=== PATIENT | female | born 1950 | race Caucasian/White ===

== ENCOUNTER 2024-04-22 13:34 | Emergency (ER) | payer MEDICARE, OTHER, SELFPAY ==
[2024-04-22 14:01] VITALS: BP 171/90
--- NOTE | 2024-04-22 14:03 | ED.GENMED ---
ED Provider Triage
<Glenn Paulson PA-C - Last Filed: 04/22/24 14:03>
-
Patient seen by provider in Triage?: Seen in Triage
Attestation: A medical screening examination has been initiated by a qualified medical provider. Based on the assessment performed at this time, it has been determined that an emergent medical condition may exist and the patient has been informed
that further medical evaluation and possible additional diagnostic testing may be needed.
HPI: Right hand injury pulling on her dog's leash. Sustained bruising and abrasions over the dorsum of the right hand. Continued pain today. X-ray of the right hand ordered. Patient otherwise stable.
GENERAL: Alert , in no apparent distress
EYE: No visual abnormalities.
NECK: Trachea midline
ENT: No visible abnormalities.
LUNGS: No acute respiratory distress
NEUROLOGICAL: Alert and oriented
SKIN: Skin intact. No visible changes.
MUSCULOSKELETAL: Moving extremities normally
PSYCH: Normal and appropriate interaction.
This is a medical evaluation conducted in person to initiate diagnostic evaluation and provide initial therapeutics. Please see further documentation by the treating clinician.
History of Present Illness
<Glenn Paulson PA-C - Last Filed: 04/22/24 14:03>
General
Chief Complaint: Musculo-Skeletal Complaint
Time Seen by Provider: 04/22/24 15:21
<Keke Trimble NP - Last Filed: 04/22/24 23:51>
General
Source: patient
Exam Limitations: none
Nursing documentation reviewed up to this point in time: agreed with
History of Present Illness
History of Present Illness:
74-year-old female presents with pain and swelling, bruising and laceration of the back of right hand which occurred last night when her dog pulled its leash and she struck the back of her right hand on a door. She is unsure of her last tetanus
immunization.
Past History
<Keke V. Day, ACID MAKER - Last Filed: 04/22/24 23:51>
Past History
ED Past Medical History: Hypercholesterolemia
Social History
Tobacco: Non-smoker
Alcohol: Occasional
Personal: Single
Review of Systems
<Keke Trimble, ACID MAKER - Last Filed: 04/22/24 23:51>
Review of Systems
Allergies reviewed?: Yes
All Other Systems: ROS reviewed and negative except as documented in HPI and ROS
Constitutional: Denies fever
Musculoskeletal: Reports other (pain back of right hand )
Skin: Reports other (cut back of right hand, bruising, pain, swelling)
Neurological: Denies weakness or numbness
Phy Exam
<Keke Trimble, ACID MAKER - Last Filed: 04/22/24 23:51>
Physical Exam
Physical Exam:
PHYSICAL EXAMINATION:
General: no apparent distress, not acutely ill
Neuro: alert and oriented.
Psychiatric: well kept. interactive and cooperative
Musculoskeletal: Moves with ease
Skin: Warm, pink.
Course
<Glenn Paulson PA-C - Last Filed: 04/22/24 14:03>
Orders/Labs/Results
Orders:
Orders
04/22/24 13:35
Hand, Right 3 View [CR Hand - Right Min 3 Views] Urgent
Comment:
Reason For Exam: bruising and swelling
04/22/24 15:27
Tetanus/Diphth/Acelpertussis [Adacel] 0.5 ml IM .ONCE ONE
04/22/24 15:33
Ackerman Wrist Right-Tx ONCE
Vital Signs
Initial and Last Documented VS:
Initial Vital Signs
Temp Pulse Resp BP Pulse Ox
99 F 67 20 171/90 99
04/22/24 14:01 04/22/24 14:01 04/22/24 14:01 04/22/24 14:01 04/22/24 14:01
Last Documented Vital Signs
Temp Pulse Resp BP Pulse Ox
99 F 70 20 170/88 99
04/22/24 14:01 04/22/24 15:38 04/22/24 15:38 04/22/24 15:38 04/22/24 15:38
<Keke Trimble, ACID MAKER - Last Filed: 04/22/24 23:51>
Orders/Labs/Results
Orders:
Orders
04/22/24 13:35
Hand, Right 3 View [CR Hand - Right Min 3 Views] Urgent
Comment:
Reason For Exam: bruising and swelling
04/22/24 15:27
Tetanus/Diphth/Acelpertussis [Adacel] 0.5 ml IM .ONCE ONE
04/22/24 15:33
Ackerman Wrist Right-Tx ONCE
Vital Signs
Initial and Last Documented VS:
Initial Vital Signs
Temp Pulse Resp BP Pulse Ox
99 F 67 20 171/90 99
04/22/24 14:01 04/22/24 14:01 04/22/24 14:01 04/22/24 14:01 04/22/24 14:01
Last Documented Vital Signs
Temp Pulse Resp BP Pulse Ox
99 F 70 20 170/88 99
04/22/24 14:01 04/22/24 15:38 04/22/24 15:38 04/22/24 15:38 04/22/24 15:38
Procedures
<Keke Trimble, ACID MAKER - Last Filed: 04/22/24 23:51>
Laceration Closure
dorsum right hand:
Status of Wound: clean
Size of Wound in cm: 1.5
Description of Wound Edges: sharp
Preparation: cleaned with soap & water
Revision/Debridement: routine- no revision
Wound exploration: no tendon involvement
Type of Closure: Dermabond-skin glue
<Keke Trimble ACID MAKER - Last Filed: 04/22/24 23:51>
MDM/Problems Addressed
Differential Diagnosis Includes:
Fracture hand, contusion
MDM/Problems Addressed:
74-year-old female presents with pain and swelling, bruising and laceration of the back of right hand which occurred last night when her dog pulled its leash and she struck the back of her right hand on a door. She is unsure of her last tetanus
immunization.
X-ray of right hand initially read by this examiner is negative for fracture
Wounds were cleansed with antibacterial soap and water, edges approximated with wound glue
Dressing and universal splint applied for protection of the dorsum
Tdap updated
<Keke Trimble ACID MAKER - Last Filed: 04/22/24 23:51>
*Critical Care Note
Total Time (30-74mins, 75-104mins- exclusive of procedures): Not Applicable
ED Attending Note
<Glenn Paulson PA-C - Last Filed: 04/22/24 14:03>
-
Portions of this chart may have been created with voice recognition software.� Occasional wrong word or��sound alike� substitutions may have occurred due to the inherent limitations of voice recognition software.
Discharge Plan
Departure
Patient Disposition: Home (Routine Discharge)
Date of Disposition: 04/22/24
Time of Disposition: 15:33
Patient with high blood pressure during this ER visit?: No
Condition: Good
Discharge Problem:
Contusion of dorsum of right hand, Laceration of right hand
Instructions: Contusion (DC), Using Cold for Pain, Wound Glue on the Extremity
Referrals:
Diego Walker, DO [Family Provider] - As needed
Activity Restrictions/Additional Instructions:
As we discussed, cold compress to the area 20 minutes off and on is much as you can today and tomorrow to minimize swelling. Wear the splint as needed for protection
You may briefly wet the glued areas in the shower, just do not rub the areas, the glue will slough off within the next 2 weeks.
Seek medical care immediately for signs of infection which may include increasing redness, swelling, pus drainage, pain, red streak up the arm or fever.
Interventions
Interventions:
*Risk Screen - Suicide Last Done: 04/22/24 14:01
*General Assessment Last Done: 04/22/24 14:01
*Neglect/Abuse Screening Last Done: 04/22/24 14:08
*ED COVID-19 Vaccine History Last Done: 04/22/24 14:08
*Nursing Disposition Last Done: 04/22/24 15:38
ED-Musculoskeletal Assessment Last Done: 04/22/24 14:08
Discharge Date and Time
Discharge Date/Time: 04/22/24 16:03
Print Language: QATARI
[2024-04-22 15:38] VITALS: BP 170/88
[2024-04-22] MEDS: ADACEL 0.5 ML IM (15:47)
== END 2024-04-22 16:03 | disposition home or self-care (01) ==
LOC: EMR 13:34
PROVIDERS: EMERGENCY PHYSICIAN Emergency Medicine; FAMILY PHYSICIAN Family Medicine
DX: S60.221A Contusion of right hand, initial encounter (principal); S61.411A Laceration without foreign body of right hand, initial encounter; W22.09XA Striking against other stationary object, initial encounter; Z23 Encounter for immunization
CPT/HCPCS: 99283; 12001; 90471; 73130; 90715